=== PATIENT | female | born 1960 | race Caucasian/White ===

== ENCOUNTER → 2016-08-12 | Outpatient (CLI) | payer OTHER | LOC: EDSTATUS 14:18 → FIMAGING 14:18 | PROVIDERS: ATTEND Internal Medicine | DX: R91.8 Other nonspecific abnormal finding of lung field (principal); R05 Cough; R06.2 Wheezing ==

== ENCOUNTER → 2016-08-17 | Outpatient (CLI) | payer OTHER ==
[~2016-08-17] MED LIST: IOPAMIDOL (ISOVUE 370) 100 ML BTL IV ONE
== END ==
LOC: FIMAGING 15:47
PROVIDERS: ATTEND Nurse Practitioner Adult Health
DX: R91.8 Other nonspecific abnormal finding of lung field (principal); I25.10 Atherosclerotic heart disease of native coronary artery without angina pectoris; Q76.6 Other congenital malformations of ribs; E07.9 Disorder of thyroid, unspecified
CPT/HCPCS: Q9967

== ENCOUNTER 2016-08-19 11:32 | Day surgery (SDC) | payer OTHER ==
[2016-08-19] MEDS ORDERED: LIDOCAINE 1% 2 ML INJ ID PRN (11:51)
[2016-08-19] MEDS ORDERED: NS 1,000 ML IV ONE (11:51)
[2016-08-19 12:15] VITALS: TEMP 99.3
[2016-08-19] MEDS ORDERED: LIDOCAINE 2% JELLY 5 ML TUBE ONE (12:25)
[2016-08-19] MEDS ORDERED: LIDOCAINE 1% 300 MG/30 ML SDV ONE ×2 (12:25→12:45)
[2016-08-19] MEDS ORDERED: EPINEPHrine 1 MG/10 ML SYR IVP ONE (12:25)
[2016-08-19] MEDS ORDERED: ALBUTEROL 3 ML DEYVIAL ONE (12:26)
[2016-08-19] MEDS ORDERED: MIDAZOLAM 2 MG/2 ML VIAL ONE (12:45)
[2016-08-19] MEDS ORDERED: fentaNYL 100 MCG/2 ML INJ ONE (12:46)
[2016-08-19 14:34] VITALS: BP 105/66; PULSE 66; RESP 20; O2SAT 99
--- NOTE | 2016-08-19 18:47 | GPN ---
[f rep st] PROCEDURE NOTE DATE OF PROCEDURE: 08/19/2016 PROCEDURE: Fiberoptic bronchoscopy. INDICATION: Lung mass. ANESTHESIA: She received Versed 6 mg, fentanyl 150 mcg. She also received 4% lidocaine nebulized, 1% lidocaine topically. The procedure was performed in the endoscopy suite with continuous pulse ox EKG and blood pressure m onitoring. Please note, N95 masks were used by all participants throughout the procedure. DESCRIPTION OF PROCEDURE: The bronchoscope was entered orally. Vocal cords were visualized and opp osed easily. Trachea and maya were visualized and showed no endobronchial lesions and normal-appe aring mucosa. The bronchoscope was entered in the left lung. The left upper lobe, lingula, left lower lobe includ ing subsegments were subsequently visualized and showed no endobronchial lesions and normal-appearin g mucosa. The bronchoscope was entered in the right lung. The right upper lobe was visualized. It showed no endobronchial lesions and normal-appearing mucosa. In the bronchus intermedius, there was a glisten ing endobronchial tumor that appeared somewhat carcinoid-like and completely occluded the bronchus i ntermedius. I was unable to pass the bronchoscope past this lesion. One endobronchial biopsy was solange carney. This was sent for pathology. However, the patient bled profusely from the one biopsy requiri ng epinephrine. Once the bleeding ceased, bronchial washings were taken in this area. This was sent for cytology, C and S, fungal cultures and AFB. The bronchoscope was then removed. The patient tolerated the procedure well. COMPLICATIONS: The only complication was bleeding post biopsy that was resolved with epinephrine. Portable chest x-ray is called for. /[id number]/MODL
== END 2016-08-19 15:10 | disposition home or self-care (01) ==
LOC: FSGY 11:32
PROVIDERS: ATTEND Internal Medicine Pulmonary Disease
DX: C7A.090 Malignant carcinoid tumor of the bronchus and lung (principal); Z87.01 Personal history of pneumonia (recurrent)
CPT/HCPCS: J2250; J3010

== ENCOUNTER → 2016-09-06 | Outpatient (CLI) | payer OTHER ==
[~2016-09-06] MED LIST changes: -IOPAMIDOL (ISOVUE 370) 100 ML BTL IV ONE; +IOPAMIDOL (ISOVUE-300) 100 ML BTL ONE
== END ==
LOC: FIMAGING 09:46
PROVIDERS: ATTEND Internal Medicine Pulmonary Disease
DX: C34.91 Malignant neoplasm of unspecified part of right bronchus or lung (principal)
CPT/HCPCS: Q9967

== ENCOUNTER 2016-09-21 11:31 | Inpatient (IN) | payer OTHER ==
[2016-09-21] MEDS ORDERED: LIDOCAINE 1% 2 ML INJ ONE ×2 (11:51→12:15)
[2016-09-21] MEDS ORDERED: ceFAZolin 2 GM/DEXTROSE 100 ML IV ONE (11:56)
[2016-09-21] MEDS ORDERED: LR 1,000 ML IV ONE (12:17)
[2016-09-21] MEDS ORDERED: LIDOCAINE 1% 2 ML INJ ID PRN (12:17)
[2016-09-21] MEDS ORDERED: BUPIVACAINE 0.5% 30 ML SDV ONE (12:39)
--- NOTE | 2016-09-21 12:53 | PDANEPAE ---
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 ANE Past Medical History - Cardiovascular History Hx Hypertension: No Hx Arrhythmias: No Hx Chest Pain: No Hx Coronary Artery / Peripheral Vascular Disease: No Hx CHF / Valvular Disease: No Hx Palpitations: No Cardiovascular History Comment: BP RUNS LOW - Pulmonary History Hx COPD: No Hx Asthma/Reactive Airway Disease: No Hx Recent Upper Respiratory Infection: No Hx Oxygen in Use at Home: Yes O2 in Use at Home (L/minute): O2 2L CONT. Hx Sleep Apnea: No Sleep Apnea Screening Result - Last Documented: Negative Pulmonary History Comment: PNEUMONIA X1 LATE , recent PNA that led to diagnosis of obstructing tumor - Neurologic History Hx Cerebrovascular Accident: No Hx Seizures: Yes Hx Dementia: No Neurologic History Comment: EPILEPSY - SEIZURES NOT SINCE - Endocrine History Hx Diabetes: No - Renal History Hx Renal Disorders: No - Liver History Hx Hepatic Disorders: No - Neurological & Psychiatric Hx Hx Neurological and Psychiatric Disorders: No - Cancer History Hx Cancer: Yes Cancer History Comment: RLL LUNG - Congenital Disorder History Hx Congenital Disorders: No - GI History Hx Gastrointestinal Disorders: No - Other Health History Other Health History: ECZEMA OCCAS - Chronic Pain History Chronic Pain: No - Surgical History Prior Surgeries: TONSILLECTOMY. NODULES PAOLO KNEES REMOVED. OVARIAN CYST. WISDOM TEETH ANE Review of Systems - Exercise capacity METS (RN): 4 METS ANE Patient History - Allergies Allergies/Adverse Reactions: No Known Allergies Allergy (Unverified 09/21/11 11:44) - Home Medications Home medications: home medication list seen and reviewed Home Medications: Aspirin [Aspirin 325 mg (*)] 325 mg PO DAILY PRN 09/17/16 [Last Taken 09/17/16] Herbals/Supplements -Info Only 1 ea PO DAILY 09/17/16 [Last Taken 09/17/16] PHENOBARBITAL 97.2 mg PO DAILY 09/17/16 [Last Taken 09/21/16] Phenobarbital 32.4 mg PO DAILY PRN 09/17/16 [Last Taken 09/21/16] - NPO status NPO Since - Liquids (Date): 09/21/16 NPO Since - Liquids (Time): 09:00 NPO Since - Solids (Date): 09/20/16 NPO Since - Solids (Time): 22:00 - Smoking Hx Smoking Status: Never smoked - Family Anes Hx Family Anes Hx: neg - N/A Family Hx Anesthesia Complications: NEG ANE Labs/Vital Signs - Labs - CBC WBC: reviewed, no anemia - Vital Signs Blood Pressure: 120/84 Heart Rate: 80 Respiratory Rate: 18 O2 Sat (%): 96 Height: 156.85 cm Weight: 70.307 kg ANE Physical Exam - Airway Neck exam: FROM Mallampati Score: Class 3 Mouth exam: small mouth opening - Pulmonary Pulmonary: expiratory wheeze - Cardiovascular Cardiovascular: regular rate and rhythym - ASA Status ASA Status: IV ANE Anesthesia Plan Anesthesia Plan: general endotracheal anesthesia Lines/Monitors: arterial line Specialized Airway: double lumen tube, video laryngoscope
[2016-09-21] MEDS ORDERED: ALBUTEROL 3 ML DEYVIAL IH ONE (13:03)
--- NOTE | 2016-09-21 13:03 | PDHPUP ---
History & Physical Update H&P update statement: This history and physical update is based on an assessment of the patient which was completed after admission or registration (within 24 hours), but prior to the surgery/procedure. H&P update: H&P reviewed & patient examined H&P changes: PET negative
[2016-09-21] MEDS ORDERED: MIDAZOLAM 2 MG/2 ML VIAL IVP ONE (13:04)
[2016-09-21] MEDS ORDERED: MIDAZOLAM 2 MG/2 ML VIAL ONE (13:05)
[2016-09-21] MEDS ORDERED: ALBUTEROL 3 ML DEYVIAL ONE (13:05)
[2016-09-21] MEDS ORDERED: ROCURONIUM 100 MG/10 ML VIAL ONE (13:09)
[2016-09-21] MEDS ORDERED: DEXAMETHASONE 4 MG/ML VIAL ONE ×2 (13:09)
[2016-09-21] MEDS ORDERED: PROPOFOL/EMULSION 500 MG/50 ML BOTTLE IV ONE ×3 (13:09→17:02)
[2016-09-21] MEDS ORDERED: LIDOCAINE 2% 5 ML SDV ONE (13:09)
[2016-09-21 14:59] LABS: BASE EXCESS -0.2 mEq/L (-2.5-2.5); BICARBONATE 23 mEq/L (22-26); MEASURED OXYGEN SATURATION 96 % (92-95); PCO2 35 mmHg (34-38); PO2 80 mmHg (65-75); TCO2 24 mEq/L (23-27)
[2016-09-21] MEDS ORDERED: ONDANSETRON 4 MG/2 ML VIAL ONE (15:24)
[2016-09-21] MEDS ORDERED: ROCURONIUM 50 MG/5 ML VIAL ONE (15:57)
[2016-09-21 16:14] LABS: BASE EXCESS 0.1 mEq/L (-2.5-2.5); BICARBONATE 23 mEq/L (22-26); MEASURED OXYGEN SATURATION 98 % (92-95); PCO2 34 mmHg (34-38); PO2 98 mmHg (65-75); TCO2 24 mEq/L (23-27)
[2016-09-21] MEDS ORDERED: PHENYLEPHRINE HCL 100 MCG/ML SYR ONE (17:28)
[2016-09-21 17:35] LABS: BASE EXCESS -0.4 mEq/L (-2.5-2.5); BICARBONATE 23 mEq/L (22-26); MEASURED OXYGEN SATURATION 99 % (92-95); PCO2 35 mmHg (34-38); PO2 171 mmHg (65-75); TCO2 24 mEq/L (23-27)
[2016-09-21] MEDS ORDERED: ALBUMIN 25% 50 ML SOLN IV ONE (17:39)
[2016-09-21] MEDS ORDERED: ONDANSETRON DISINTEGRATING 4 MG TAB PO PRN (18:02)
[2016-09-21] MEDS ORDERED: ONDANSETRON 4 MG/2 ML VIAL IVP PRN (18:02)
[2016-09-21] MEDS ORDERED: diphenhydrAMINE 25 MG CAP PO PRN (18:02)
[2016-09-21] MEDS ORDERED: PHENOBARBITAL 32.4 MG PO PRN (18:04)
[2016-09-21] MEDS ORDERED: NARCOTIC DRIP BAG-TOTAL ALL TYPES EP PRN (18:06)
[2016-09-21] MEDS ORDERED: NALOXONE HCL 0.4 MG/ML INJ IVP PRN ×3 (18:06→20:19)
[2016-09-21] MEDS ORDERED: fentaNYL 2MCG/ML&BUP 0.0625% in 100ML NS EP SCH (18:06)
[2016-09-21] MEDS ORDERED: NEOSTIGMINE METHYLSULFATE 5 MG/5 ML SYR ONE (18:28)
[2016-09-21] MEDS ORDERED: GLYCOPYRROLATE 0.2 MG/1 ML VIAL ONE ×2 (18:29→18:36)
[2016-09-21] MEDS ORDERED: ALBUTEROL 3 ML DEYVIAL IH PRN (18:34)
[2016-09-21] MEDS ORDERED: PROMETHAZINE HCL 25 MG/ML INJ IVP PRN ×2 (18:34→20:19)
[2016-09-21] MEDS ORDERED: LR 500 ML IV PRN (18:34)
[2016-09-21] MEDS ORDERED: ACETAMINOPHEN 325 MG TAB PO PRN (19:03)
--- NOTE | 2016-09-21 19:06 | POSTOPPROG ---
Post Op Note Date of Operation: 09/21/16 Surgeon: Sailaja Rangel Vendor Relationship Manager: arpan Anesthesiologist: cee Anesthesia: GET(General Endotracheal) Pre-op Diagnosis: RLL carcinoid Post-op Diagnosis: same Indication: 55yo F with carcinoid tumor Procedure: R VATS convert thoracotomy with RML and RLL lobectomy Inf/Abcess present in the surg proc area at time of surgery?: No Depth: Organ Space EBL: Greater than 1000 Drains: Other (pleuravac)
[2016-09-21] MEDS ORDERED: PROPOFOL 200 MG/20 ML VIAL ONE (19:25)
--- NOTE | 2016-09-21 20:19 | POSTANESTH ---
Post Anesthetic Evaluation Cardiovascular Status: Normal, Stable Respiratory Status: Other, See Comment (Pt on ventilator, PS mode. Tv only 200 when taken off PS in OR. Decided to leave intubated overnight and reassess in the morning.) Level of Consciousness/Mental Status: Moderately Sleepy, Other, See Comment ( Sedated due to need for intubation.) Pain Control: Adequate, Prn Tx Ordered Nausea/Vomiting Control: Adequate, Prn Tx Ordered Complications Possibly Related to Anesthesia: None Noted
[2016-09-21 21:58] LABS: BICARBONATE 22 mEq/L (22-26); MEASURED OXYGEN SATURATION 100 % (92-95); PCO2 37 mmHg (34-38); PO2 284 mmHg (65-75); TCO2 23 mEq/L (23-27)
[2016-09-21 21:59] LABS: ASSIST CONTROL YES
[2016-09-21 22:00] LABS: END TIDAL CO2 43; O2 CONCENTRATIION 100 % (0-100); P/F RATIO 284 RATIO; TOTAL RATE 20
[2016-09-21 22:03] LABS: HEMATOCRIT 35.8 % (38.0-47.0); HEMOGLOBIN 12.1 g/dL (12.6-16.3)
[2016-09-21] MEDS ORDERED: fentaNYL 100 MCG/2 ML INJ IVP PRN (23:05)
[2016-09-21] MEDS: FAMOTIDINE 20 MG/NACL 50 ML IV SCH (23:15)
[2016-09-21] MEDS: CHLORHEXIDINE GLUCONATE 15 ML UDL PO SCH (23:15)
[2016-09-21] MEDS: PATCH REMOVAL 1 EA PATCH TD SCH (23:16)
[2016-09-22] MEDS ORDERED: PHENOBARBITAL 32.4 MG PO PRN (00:35)
[2016-09-22] MEDS ORDERED: PROPOFOL/EMULSION 1,000 MG/100 ML BOTTLE IV ONE (04:21)
[2016-09-22 04:37] LABS: % IMMATURE GRANULYOCYTES 0.3 % (0.0-1.1); ABSOLUTE IMMATURE GRANULOCYTES 0.04 10^3/uL (0.00-0.10); ADD DIFF? NO; ADD MORPH? NO; ADD SCAN? NO; ATYPICAL LYMPHOCYTE FLAG 0 (0-99); FRAGMENT RBC FLAG 0 (0-99); HEMATOCRIT 34.7 % (38.0-47.0); HEMOGLOBIN 11.8 g/dL (12.6-16.3); LEFT SHIFT FLG 40 (0-99); LIPEMIA HEMOLYSIS FLAG 90 (0-99); MEAN CELL VOLUME 91.1 fL (81.5-99.8); MEAN PLATELET VOLUME 9.3 fL (8.7-11.7); PLATELET CLUMPS FLAG 0 (0-99); PLATELET COUNT 179 10^3/uL (150-400); RED BLOOD CELL COUNT 3.81 10^6/uL (4.18-5.33); RED CELL DISTRIBUTION WIDTH 14.3 % (11.5-15.2)
[2016-09-22 04:50] LABS: ANION GAP 7 mEq/L (8-16); CALCIUM 8.5 mg/dL (8.5-10.4); CARBON DIOXIDE 24 mEq/l (22-31); CHLORIDE 104 mEq/L (97-110); CREATININE 0.7 mg/dL (0.6-1.0); GLOMERULAR FILTRATION RATE > 60; GLUCOSE 137 mg/dL (70-100); POTASSIUM 4.2 mEq/L (3.5-5.2); SODIUM 135 mEq/L (134-144)
[2016-09-22 05:10] LABS: BASE EXCESS -0.2 mEq/L (-2.5-2.5); BICARBONATE 23 mEq/L (22-26); MEASURED OXYGEN SATURATION 98 % (92-95); PCO2 38 mmHg (34-38); PO2 109 mmHg (65-75); TCO2 25 mEq/L (23-27)
[2016-09-22 05:13] LABS: ASSIST CONTROL YES; O2 CONCENTRATIION 40 % (0-100); P/F RATIO 273 RATIO; TOTAL RATE 14
[2016-09-22] MEDS ORDERED: PROPOFOL/EMULSION 100 ML IV SCH (06:31)
[2016-09-22 08:43] LABS: BASE EXCESS 0.2 mEq/L (-2.5-2.5); BICARBONATE 24 mEq/L (22-26); MEASURED OXYGEN SATURATION 98 % (92-95); PCO2 37 mmHg (34-38); PO2 106 mmHg (65-75); TCO2 25 mEq/L (23-27)
[2016-09-22 08:44] LABS: CPAP YES; END TIDAL CO2 41; O2 CONCENTRATIION 40 % (0-100); P/F RATIO 265 RATIO
[2016-09-22 08:45] LABS: PATIENT RATE 25; PRESSURE SUPPORT 10
[2016-09-22] MEDS ORDERED: DC NARCS MISC SCH (09:00)
[2016-09-22] MEDS: FAMOTIDINE 20 MG/NACL 50 ML IV SCH ×2 (09:00→19:49)
[2016-09-22] MEDS ORDERED: REGARDING ANTICOAG MISC SCH (09:00)
[2016-09-22] MEDS: PHENOBARBITAL 97.2 MG PO SCH (09:05)
[2016-09-22] MEDS ORDERED: LIDOCAINE 2% 5 ML SDV ONE (09:13)
[2016-09-22] MEDS ORDERED: NARCOTIC DRIP BAG-TOTAL ALL TYPES EP PRN (10:14)
[2016-09-22] MEDS ORDERED: NALOXONE HCL 0.4 MG/ML INJ IVP PRN (10:14)
[2016-09-22] MEDS: fentaNYL 2MCG/ML/BUP 0.1% RTU 100 ML EP SCH (10:53)
[2016-09-22] MEDS: NS 1,000 ML IV SCH (11:07)
[2016-09-22] MEDS: DIAZEPAM 10 MG TAB PO PRN ×2 (11:07→19:49)
--- NOTE | 2016-09-22 11:16 | SOAPPROG ---
SOAP Progress Note Assessment/Plan: Assessment: 38 year old female s/p R thoractomy on POD #1. Intubated overnight secondary to low spontaneous Tv at end of surgery. Pt is 10/10 pain at this time. Pt does have a sensory block to cold on R chest, just not a very dense block. Blocked area T4 to T12 at this time. Pt responded well to 2% lidocaine bolus in epidural (pain down from 10/10 to 4/ 10). Pt complains of persistent in scapula and collarbone. Reports feeling that she could not relax the shoulder this AM. Plan: 1. Change epidural infusion to 0.1 % bupivacaine with Fentanyl 2 mcg/cc. 2. Start Valium for muscle spasm in shoulder girdle. 3. If Valium ineffective, will try Percocet. 09/22/16 11:13 Objective: Vital Signs Temp Pulse Resp BP Pulse Ox 37.6 C 102 H 24 H 107/61 98 09/22/16 06:00 09/22/16 08:00 09/22/16 08:00 09/22/16 08:00 09/22/16 08:00 Laboratory Results 09/22/16 04:20 09/22/16 04:20 09/21/16 09/22/16 09/23/16 05:59 05:59 05:59 Intake Total 768 Output Total 466 Balance 302 ICD10 Worksheet Patient Problems: Problems Problem Status Onset Pain Acute - ICD10 Problem Qualifiers (1) Pain
[2016-09-22] MEDS ORDERED: ROCURONIUM 100 MG/10 ML VIAL ONE (14:46)
[2016-09-22] MEDS: CHLORHEXIDINE GLUCONATE 15 ML UDL PO SCH ×2 (16:02→20:35)
--- NOTE | 2016-09-22 16:21 | SOAPPROG ---
SOAP Progress Note Assessment/Plan: Assessment: 55yo F POD#1 s/p mini-thoracotomy RML and RLL lobectomy for carcinoid lung tumor Acute blood loss anemia s/p 1u PRBCs in OR. H/H stable today. Continue to follow Chest tube to water seal - repeat CXR in am Regular diet Epidural in place - anesthesia managing for pain control. Tylenol OK Up in chair, ambulate with PT/OT Seen with Dr. Rangel Dispo: continue inpatient, hopeful to remove chest tube tomorrow if CXR ok in am S: extubated today. issues with pain control this morning, Dr. Alonso adjusted meds and now feeling better. Hasn't gotten out of bed yet O: laying in bed, comfortable, NAD, at bedside Decreased BS R base. Clear elsewhere. No increased WOB RRR Chest dressings in place Chest tube with min serosanguinous output. No air leak Objective: Vital Signs Temp Pulse Resp BP Pulse Ox 37.6 C 92 21 H 129/63 H 99 09/22/16 06:00 09/22/16 14:00 09/22/16 15:59 09/22/16 15:59 09/22/16 15:59 Laboratory Results 09/22/16 04:20 09/22/16 04:20 09/21/16 09/22/16 09/23/16 05:59 05:59 05:59 Intake Total 768 Output Total 466 Balance 302 ICD10 Worksheet Patient Problems: Problems Problem Status Onset Pain Acute
[2016-09-22] MEDS: LIDOCAINE 5% 1 EA PATCH TD SCH (17:28)
[2016-09-22] MEDS: PATCH REMOVAL 1 EA PATCH TD SCH (20:35)
[2016-09-23] MEDS: DIAZEPAM 10 MG TAB PO PRN ×4 (01:39→21:30)
[2016-09-23] MEDS: fentaNYL 2MCG/ML/BUP 0.1% RTU 100 ML EP SCH (01:41)
[2016-09-23] MEDS: LIDOCAINE 5% 1 EA PATCH TD SCH ×2 (02:14→12:38)
[2016-09-23] MEDS: PATCH REMOVAL 1 EA PATCH TD SCH (05:30)
[2016-09-23] MEDS ORDERED: LIDOCAINE 5% 1 EA PATCH TD SCH (09:00)
[2016-09-23] MEDS: FAMOTIDINE 20 MG/NACL 50 ML IV SCH (09:36)
[2016-09-23] MEDS: DC NARCS MISC SCH (09:36)
[2016-09-23] MEDS: REGARDING ANTICOAG MISC SCH (09:37)
[2016-09-23] MEDS: PHENOBARBITAL 97.2 MG PO SCH (09:43)
--- NOTE | 2016-09-23 13:00 | PDINTPN ---
Hosiery Knitter Progress Note Assessment/Plan: Assessment/plan: 55 F with recent diagnosis of pulmonary carcinoid, s/p RML/RLL lobectomy without complication. She presented with non productive cough, but CT showed obstructing lesion at bronchus intermedius. Bronch showed carcinoid, while PET/ CT did not show additional lesions. Preop FEV1= 66% predicted with normal DLCO and volumes. Underwent VATS but converted to thoracotomy with >1000 EBL. Remained on vent overnight, but extubated easily 09/22/16. * Pulmonary carcinoids/p RML/RLL lobectomy- currently stable with no visible air leak by my exam and CT output total 280. CXR without PTX. Pain controlled. Continue pulmonary toilet, but probable OK for floor. * Hypoxia- not clear what baseline will be but continue to titrate as tolerated. On 3 lpm sat was 99% Subjective: feels better today; pain controlled. Denies SOB, cough. Objective: Vital Signs Temp Pulse Resp BP Pulse Ox 36.6 C 95 16 114/55 L 99 09/23/16 08:00 09/23/16 08:00 09/23/16 08:00 09/23/16 08:00 09/23/16 08:00 Laboratory Results 09/22/16 04:20 09/22/16 04:20 09/22/16 09/23/16 09/24/16 05:59 05:59 05:59 Intake Total 768 1757 Output Total 466 1730 Balance 302 27 Physical Exam - Physical Exam General Appearance: WD/WN, alert, no apparent distress EENT: PERRL/EOMI Neck: supple Respiratory: rhonchi (few), No respiratory distress Cardiac/Chest: regular rate, rhythm, No edema Abdomen: non-tender, soft, No distended Skin: normal color, warm/dry Lymphatic: no adenopathy Extremities: No pedal edema Neuro/Psych: alert, normal mood/affect, oriented x 3 ICD10 Worksheet Patient Problems: Problems Problem Status Onset Pain Acute
--- NOTE | 2016-09-23 20:16 | SOAPPROG ---
SOAP Progress Note Assessment/Plan: Assessment: 38 year old female s/p R thoracotomy with RML and RLL lobectomies now on POD # 2. Pt moved to floor room today. Pain well-controlled with TEA. Pain level a 4-5 /10 by report. Pt able to cough, deep breath, and move with minimal change in pain level. Appears comfortable. Plan: 1. Continue epidural infusion at current settings. When chest tube removed, consider transitioning to oral narcotics + Celebrex/Neurontin as tolerated. 2. Continue Valium for shoulder pain/muscle spasm. Discussed spacing out dosing with patient, particularly during the day, so that she can walk and be more active. 09/22/16 11:13 09/23/16 20:13 Objective: Vital Signs Temp Pulse Resp BP Pulse Ox 37.0 C 105 H 16 114/83 H 96 09/23/16 19:52 09/23/16 19:52 09/23/16 19:52 09/23/16 19:52 09/23/16 19:52 Laboratory Results 09/22/16 04:20 09/22/16 04:20 09/22/16 09/23/16 09/24/16 05:59 05:59 05:59 Intake Total 768 1757 550 Output Total 466 1730 100 Balance 302 27 450 Physical Exam - Physical Exam General Appearance: alert, no apparent distress ICD10 Worksheet Patient Problems: Problems Problem Status Onset Pain Acute - ICD10 Problem Qualifiers (1) Pain
[2016-09-23] MEDS ORDERED: PATCH REMOVAL 1 EA PATCH TD SCH (21:00)
--- NOTE | 2016-09-23 21:00 | SOAPPROG ---
SOAP Progress Note Assessment/Plan: Assessment: POD # 2 s/p right middle and lower lobectomy for carcinoid CXR without pneumothorax on waterseal Chronic respiratory failure on oxygen at home Seizure disorder - continue po meds Pain is better controlled today Regular diet IS Ambulate at least 3x per day S: Woke up at 2 am in pain. Sitting in chair, at bedside No air leak Surprisingly clear but needs improved effort Regular rate Incisions cdi Plan: 09/23/16 20:57 Objective: Vital Signs Temp Pulse Resp BP Pulse Ox 37.0 C 105 H 16 114/83 H 96 09/23/16 19:52 09/23/16 19:52 09/23/16 19:52 09/23/16 19:52 09/23/16 19:52 Laboratory Results 09/22/16 04:20 09/22/16 04:20 09/22/16 09/23/16 09/24/16 05:59 05:59 05:59 Intake Total 768 1757 550 Output Total 466 1730 100 Balance 302 27 450 ICD10 Worksheet Patient Problems: Problems Problem Status Onset Pain Acute
[2016-09-23] MEDS: NS 1,000 ML IV SCH (23:50)
[2016-09-24] MEDS: fentaNYL 2MCG/ML/BUP 0.1% RTU 100 ML EP SCH ×3 (00:17→20:36)
[2016-09-24] MEDS: DIAZEPAM 10 MG TAB PO PRN ×3 (04:16→21:37)
[2016-09-24 05:05] LABS: % IMMATURE GRANULYOCYTES 0.7 % (0.0-1.1); ABSOLUTE IMMATURE GRANULOCYTES 0.07 10^3/uL (0.00-0.10); ADD DIFF? NO; ADD MORPH? NO; ADD SCAN? NO; ATYPICAL LYMPHOCYTE FLAG 0 (0-99); FRAGMENT RBC FLAG 0 (0-99); HEMOGLOBIN 8.9 g/dL (12.6-16.3); LEFT SHIFT FLG 20 (0-99); LIPEMIA HEMOLYSIS FLAG 80 (0-99); MEAN CELL HEMOGLOBIN 31.2 pg (27.9-34.1); MEAN CELL VOLUME 94.7 fL (81.5-99.8); MEAN PLATELET VOLUME 9.6 fL (8.7-11.7); PLATELET CLUMPS FLAG 0 (0-99); PLATELET COUNT 127 10^3/uL (150-400); RED BLOOD CELL COUNT 2.85 10^6/uL (4.18-5.33); RED CELL DISTRIBUTION WIDTH 13.3 % (11.5-15.2)
--- NOTE | 2016-09-24 06:30 | SOAPPROG ---
SOAP Progress Note Assessment/Plan: Assessment: 38 year old female s/p R thoracotomy with RML and RLL lobectomies now on POD # 3. Pt in bed awake. Reports last night was a better night. Better sleep, less shoulder pain. Pt able to cough and roll onto side with minimal increased discomfort. Plan: 1. If chest tube is removed, and pt ambulates outside of room today, will hold epidural infusion tomorrow morning at 6 AM and trial oral pain regimen. 09/22/16 11:13 09/23/16 20:13 09/24/16 06:28 Objective: Vital Signs Temp Pulse Resp BP Pulse Ox 37.0 C 107 H 16 99/68 L 93 09/24/16 06:00 09/24/16 06:00 09/24/16 06:00 09/24/16 06:00 09/24/16 06:00 Laboratory Results 09/24/16 04:40 09/22/16 04:20 09/23/16 09/24/16 09/25/16 05:59 05:59 05:59 Intake Total 1757 900 100 Output Total 1730 350 250 Balance 27 550 -150 Physical Exam - Physical Exam General Appearance: alert, no apparent distress Back: Other (Epidural insertion site: catheter in place. No erythema/exudate/ induration/point tenderness.) ICD10 Worksheet Patient Problems: Problems Problem Status Onset Pain Acute - ICD10 Problem Qualifiers (1) Pain
[2016-09-24] MEDS: PHENOBARBITAL 97.2 MG PO SCH (08:39)
[2016-09-24] MEDS ORDERED: CANN-EASE 2 GM TUBE TP PRN (12:22)
[2016-09-24] MEDS: DC NARCS MISC SCH (12:42)
[2016-09-24] MEDS: REGARDING ANTICOAG MISC SCH (12:43)
--- NOTE | 2016-09-24 13:47 | SOAPPROG ---
<Lesli Palomino - Last Filed: 09/24/16 13:41> SOAP Progress Note Assessment/Plan: Assessment: 55yo F POD#3 s/p mini-thoracotomy RML and RLL lobectomy for carcinoid lung tumor H/H drifting. Continue to follow Chest tube to water seal . Output increased today Regular diet Epidural in place - anesthesia managing for pain control Up in chair, ambulate with PT/OT Dispo: continue inpatient S: O: sitting up in chair, comfortable, NAD] Decreased BS R base. Clear elsewhere. No increased WOB RRR Chest dressings in place Chest tube with serosanguinous output. No air leak Objective: Vital Signs Temp Pulse Resp BP Pulse Ox 36.8 C 102 H 16 108/65 98 09/24/16 12:00 09/24/16 12:00 09/24/16 12:00 09/24/16 12:00 09/24/16 12:00 Laboratory Results 09/24/16 04:40 09/22/16 04:20 09/23/16 09/24/16 09/25/16 05:59 05:59 05:59 Intake Total 1757 900 100 Output Total 1730 350 250 Balance 27 550 -150 ICD10 Worksheet Patient Problems: Problems Problem Status Onset Pain Acute <Sailaja Rangel - Last Filed: 09/24/16 20:51> SOAP Progress Note Assessment/Plan: Assessment: Path T1bNO typical carcinoid No air leak' Incision cdi Walked to 2nd nursing station Remove chest tube when less than 150cc out in 24 hour Home on O2 due to chronic respiratory failure Epidural likely out on Tuesday Plan: 09/24/16 20:49 Objective: Vital Signs Temp Pulse Resp BP Pulse Ox 37.4 C 94 16 122/78 H 98 09/24/16 20:00 09/24/16 20:00 09/24/16 20:00 09/24/16 20:00 09/24/16 20:00 Laboratory Results 09/24/16 04:40 09/22/16 04:20 09/23/16 09/24/16 09/25/16 05:59 05:59 05:59 Intake Total 4069 407 4876 Output Total 1730 350 455 Balance 27 550 1045
[2016-09-24] MEDS: LIDOCAINE 5% 1 EA PATCH TD SCH ×2 (18:46→21:36)
[2016-09-25] MEDS: NS 1,000 ML IV SCH (01:37)
[2016-09-25 05:08] LABS: % IMMATURE GRANULYOCYTES 0.5 % (0.0-1.1); ABSOLUTE IMMATURE GRANULOCYTES 0.03 10^3/uL (0.00-0.10); ADD DIFF? NO; ADD MORPH? NO; ADD SCAN? NO; ATYPICAL LYMPHOCYTE FLAG 0 (0-99); FRAGMENT RBC FLAG 0 (0-99); HEMATOCRIT 25.1 % (38.0-47.0); HEMOGLOBIN 8.3 g/dL (12.6-16.3); LEFT SHIFT FLG 30 (0-99); LIPEMIA HEMOLYSIS FLAG 80 (0-99); MEAN CELL HEMOGLOBIN 31.3 pg (27.9-34.1); MEAN CELL HEMOGLOBIN CONCENTR. 33.1 g/dL (32.4-36.7); MEAN CELL VOLUME 94.7 fL (81.5-99.8); MEAN PLATELET VOLUME 9.5 fL (8.7-11.7); PLATELET CLUMPS FLAG 0 (0-99); PLATELET COUNT 139 10^3/uL (150-400); RED BLOOD CELL COUNT 2.65 10^6/uL (4.18-5.33); RED CELL DISTRIBUTION WIDTH 13.2 % (11.5-15.2)
[2016-09-25] MEDS: fentaNYL 2MCG/ML/BUP 0.1% RTU 100 ML EP SCH ×2 (06:31→18:45)
[2016-09-25] MEDS ORDERED: BISACODYL 10 MG SUPP PR PRN (08:23)
[2016-09-25] MEDS ORDERED: MAGNESIUM HYDROXIDE 30 ML UDCUP PO PRN (08:23)
[2016-09-25] MEDS ORDERED: POLYETHYLENE GLYCOL 3350 17 GM PKT PO PRN (08:23)
[2016-09-25] MEDS ORDERED: LACTULOSE 20 GM/30 ML UDCUP PO PRN (08:23)
--- NOTE | 2016-09-25 08:49 | SOAPPROG ---
MABLE Progress Note Assessment/Plan: Assessment/Plan: - 55-year-old female status post thoracotomy for right middle and lower lobectomy for carcinoid -Pain appears well controlled with the epidural, will plan to remove the epidural tomorrow. - chest tube output greater than 250 cc over the last 24 hours, no air leak, to water seal. Given its output over the last 24 hours I will leave the tube until tomorrow, will likely remove it then. - Regular diet, bowel regimen added. - patient is to get out of bed and ambulate, anticipate she will be in house until Tuesday or Tuesday. 09/25/16 08:48 Subjective: Doing well, not much of an appetite Objective: Vital Signs Temp Pulse Resp BP Pulse Ox 36.9 C 91 16 112/74 99 09/25/16 07:40 09/25/16 07:40 09/25/16 07:40 09/25/16 07:40 09/25/16 07:40 Laboratory Results 09/25/16 04:24 09/22/16 04:20 09/24/16 09/25/16 09/26/16 05:59 05:59 05:59 Intake Total 900 2577 Output Total 350 508 250 Balance 550 2069 -250 ICD10 Worksheet Patient Problems: Problems Problem Status Onset Pain Acute
[2016-09-25] MEDS: SENNOSIDES/DOCUSATE SODIUM TAB PO SCH ×2 (09:30→21:14)
[2016-09-25] MEDS: PHENOBARBITAL 97.2 MG PO SCH (09:30)
[2016-09-25] MEDS: DIAZEPAM 10 MG TAB PO PRN ×2 (09:30→21:13)
[2016-09-25] MEDS: PATCH REMOVAL 1 EA PATCH TD SCH (09:32)
[2016-09-25] MEDS: REGARDING ANTICOAG MISC SCH (09:33)
[2016-09-25] MEDS: DC NARCS MISC SCH (09:33)
--- NOTE | 2016-09-25 12:08 | GOP ---
[f rep st] OPERATIVE REPORT DATE OF OPERATION: 09/21/2016 SURGEON: Sailaja Rangel MD PENSION ADMINISTRATOR: Dr. Bird, who was requested by my presence for timely completion of the case and techni martin expertise. PREOPERATIVE DIAGNOSIS: Right bronchus intermedius carcinoid tumor. POSTOPERATIVE DIAGNOSIS: Right bronchus intermedius carcinoid tumor. PROCEDURE PERFORMED: thoracotomy, right middle and lower lobectomy. FINDINGS: SPECIMENS: Right middle and lower lobes. ESTIMATED BLOOD LOSS: 1 L. INDICATIONS: The patient is a 55-year-old woman, with a carcinoid tumor in her right bronchus inter medius. DESCRIPTION OF PROCEDURE: The patient was brought into the operating room, placed supine on the tab le, and general anesthesia was administered. She was placed in the decubitus position with the righ t side up, and isolated. The chest was prepped and draped in the usual sterile fashion. I infiltrated all sites with 0.5% Marcaine prior to making the incision. I made an incision in the mid axillary line at approximately 6th rib space. I then inserted an anterior trocar at the the 4t h rib space, as well as a posterior trocar along the 8th rib space. I explored her cavity. There w as a well-developed fissure between the right upper lobe and the right middle lobe. Began my dissec tion in this area. The right upper lobe was retracted anteriorly. I found the pulmonary artery, wh ich was readily identified. I began to skeletonize it and its branches. I divided it as it bifurca aline, with an Endo-JOY white load staple. I continued to retract the lung posteriorly and divide the mediastinal , and continued my dissection. I was able to identify the bronchus. Next, I retracted the lung to identify the pulmonary vein. The inferior pulmonary vein appeared quite smal l and there was a larger vein next to this. As I was dissecting this, I made a small breech and we made a mini thoracotomy to control the bleeding, and we dissected down through the skin, subcutaneou s tissues, divided the muscles, and inserted a retractor, and were able to identify the i n this area. The vessel actually was the superior pulmonary vein, and I was able to come around the inferior pulmonary vein and suture ligate this and divide it. I continued to divide the remaining attachments so that the only structure remaining was the bronchus intermedius. I clamped this and h ad Anesthesia re-insufflate the lung. The right upper lung expanded appropriately and desufflated. I then divided the bronchus with the JOY blue load stapler. The lung was passed off the table and sent to Pathology. I then pushed air space from the cavity, and had Anesthesia re-insufflate. Up a samir, there was 1 small air leak, which was repaired with a suture. No additional air leaks noted. I placed a 32-A[place]ijani chest tube directed apically. It was sutured in place with 0 Vicryl and ____ approximated and placed 0 Vicryl sutures to reapproximate the . I then closed each of the muscle layers with 2-0 Vicryl. The subcutaneous tissues were closed with 3-0 Vicryl, followed by 4-0 Monocryl, and Dermabond applied. The chest tube was connected to a Pleur-Evac and to suction . She was placed back in the supine position, awakened in the operating room, extubated, and transf erred to PACU in stable condition. /[id number]/MODL
--- NOTE | 2016-09-25 19:45 | SOAPPROG ---
SOAP Progress Note Assessment/Plan: Assessment:epidural working to good effect Plan:continue current infusion scheme 09/25/16 19:43 Subjective: pain well controlled, catheter site intact, no induration or erythema Objective: Vital Signs Temp Pulse Resp BP Pulse Ox 37.1 C 94 16 105/66 100 09/25/16 15:55 09/25/16 15:55 09/25/16 15:55 09/25/16 15:55 09/25/16 15:55 Laboratory Results 09/25/16 04:24 09/22/16 04:20 09/24/16 09/25/16 09/26/16 05:59 05:59 05:59 Intake Total 900 2577 Output Total 350 508 330 Balance 550 2069 -330 - Pending Discharge Pending Discharge Within 24 Hours: No ICD10 Worksheet Patient Problems: Problems Problem Status Onset Pain Acute
[2016-09-25] MEDS: LIDOCAINE 5% 1 EA PATCH TD SCH (21:14)
[2016-09-26] MEDS: NS 1,000 ML IV SCH (02:40)
[2016-09-26] MEDS: fentaNYL 2MCG/ML/BUP 0.1% RTU 100 ML EP SCH (06:02)
[2016-09-26] MEDS: DIAZEPAM 10 MG TAB PO PRN ×2 (08:17→21:17)
[2016-09-26] MEDS: SENNOSIDES/DOCUSATE SODIUM TAB PO SCH ×2 (08:18→21:19)
[2016-09-26] MEDS: DC NARCS MISC SCH (08:18)
[2016-09-26] MEDS: REGARDING ANTICOAG MISC SCH (08:18)
[2016-09-26] MEDS: PHENOBARBITAL 97.2 MG PO SCH (08:18)
[2016-09-26] MEDS: PATCH REMOVAL 1 EA PATCH TD SCH (08:19)
--- NOTE | 2016-09-26 09:24 | SOAPPROG ---
[facility] Progress Note Assessment/Plan: Assessment/Plan: - 55-year-old female status post thoracotomy for right middle and lower lobectomy for carcinoid -pain controlled, epidural out ideally today. Will discuss with the on-call anesthesia -chest tube with just over 100 cc out over the last 24 hours, was discontinued at the bedside without complication. Site appropriately dressed, would wait 24 hours before showering -tolerating a diet, working on bowel function. -out of bed ambulating, anticipate will go home tomorrow with home oxygen. 09/25/16 08:48 09/26/16 09:23 Subjective: Feeling well, tolerating a diet. Anxious to get the tube out Objective: Vital Signs Temp Pulse Resp BP Pulse Ox 36.8 C 92 16 122/77 H 98 09/26/16 07:46 09/26/16 07:46 09/26/16 07:46 09/26/16 07:46 09/26/16 07:46 Laboratory Results 09/25/16 04:24 09/22/16 04:20 09/25/16 09/26/16 09/27/16 05:59 05:59 05:59 Intake Total 9698 838 Output Total 501 355 Balance 9843 445 ICD10 Worksheet Patient Problems: Problems Problem Status Onset Pain Acute
--- NOTE | 2016-09-26 11:52 | SOAPPROG ---
SOAP Progress Note Assessment/Plan: Assessment: Dr. Albarran says patient ready to stop epidural and transition to PO analgesia. She confirms this. Plan: D/C epidural infusion, remove catheter. 09/26/16 11:49 Subjective: Analgesia has been good. Objective: Epidural site dry, noninflamed. Catheter removed, black tip intact. Dr. Albarran and RN notified. Vital Signs Temp Pulse Resp BP Pulse Ox 36.8 C 93 19 114/71 98 09/26/16 07:46 09/26/16 10:00 09/26/16 10:00 09/26/16 10:00 09/26/16 10:00 Laboratory Results 09/25/16 04:24 09/22/16 04:20 09/25/16 09/26/16 09/27/16 05:59 05:59 05:59 Intake Total 0910 838 Output Total 500 355 Balance 5507 493 - Time Spent With Patient Time Spent With Patient: 10 min ICD10 Worksheet Patient Problems: Problems Problem Status Onset Pain Acute
[2016-09-26] MEDS: OXYCODONE/APAP 5/325 TAB PO PRN ×3 (12:48→21:18)
[2016-09-26] MEDS: LIDOCAINE 5% 1 EA PATCH TD SCH (21:17)
[2016-09-27] MEDS: OXYCODONE/APAP 5/325 TAB PO PRN ×4 (02:08→21:05)
[2016-09-27] MEDS: SENNOSIDES/DOCUSATE SODIUM TAB PO SCH ×2 (08:16→21:04)
[2016-09-27] MEDS: PHENOBARBITAL 97.2 MG PO SCH (08:17)
[2016-09-27] MEDS: PATCH REMOVAL 1 EA PATCH TD SCH (08:41)
--- NOTE | 2016-09-27 11:05 | SOAPPROG ---
MABLE Progress Note Assessment/Plan: Assessment/Plan: - 55-year-old female status post thoracotomy for right middle and lower lobectomy for carcinoid - Epidural is out, pain is controlled - Very poor pulmonary effort, had her perform IS for me this AM and not even getting 500cc. She didnt seem to understand the concept but after counseling seems to have better understanding of need for pulm toilet - From all other aspect she is doing well and meeting milestones for dc, will check back in later this afternoon and if doing well will plan to dc home. - Will need home O2 09/25/16 08:48 09/26/16 09:23 09/27/16 11:03 Subjective: Pain controlled with epidural removed, very poor pulmonary effort <500cc on IS Objective: Vital Signs Temp Pulse Resp BP Pulse Ox 36.7 C 87 18 117/73 98 09/27/16 09:02 09/27/16 09:02 09/27/16 09:02 09/27/16 09:02 09/27/16 09:02 Laboratory Results 09/25/16 04:24 09/22/16 04:20 09/26/16 09/27/16 09/28/16 05:59 05:59 05:59 Intake Total 838 1450 Output Total 355 Balance 483 1450 ICD10 Worksheet Patient Problems: Problems Problem Status Onset Pain Acute
[2016-09-27] MEDS: DIAZEPAM 10 MG TAB PO PRN ×2 (12:38→21:04)
[2016-09-27] MEDS: LIDOCAINE 5% 1 EA PATCH TD SCH (21:11)
[2016-09-28] MEDS: OXYCODONE/APAP 5/325 TAB PO PRN ×3 (02:29→13:35)
[2016-09-28] MEDS: DIAZEPAM 10 MG TAB PO PRN ×2 (05:50→13:35)
[2016-09-28] MEDS ORDERED: PHENOBARBITAL 97.2 MG PO SCH (08:00)
[2016-09-28] MEDS: SENNOSIDES/DOCUSATE SODIUM TAB PO SCH (08:15)
[2016-09-28] MEDS: PATCH REMOVAL 1 EA PATCH TD SCH (08:18)
[2016-09-28 08:52] VITALS: BP 118/72; RESP 18; TEMP 98.1
--- NOTE | 2016-09-28 11:44 | PDIAF ---
- Diagnosis Diagnosis: s/p lobectomy for cancer Code Status: Full Code - Medication Management Discharge Medications: Medications to Continue on Transfer Aspirin [Aspirin 325 mg (*)] 325 mg PO DAILY PRN 09/17/16 [Last Taken 09/17/16] Herbals/Supplements -Info Only 1 ea PO DAILY 09/17/16 [Last Taken 09/17/16] PHENOBARBITAL 97.2 mg PO DAILY 09/17/16 [Last Taken 09/21/16] Phenobarbital 32.4 mg PO DAILY PRN 09/17/16 [Last Taken 09/21/16] Diazepam [Valium 10 MG (*)] 5 mg PO Q6HRS PRN #30 tab 09/28/16 [Last Taken Unknown] oxyCODONE/APAP 5/325 [Percocet 5/325 (*)] 1 - 2 tab PO Q4HRS PRN #40 tab [Last Taken Unknown] Discharge Medications: Refer to the Discharge Home Medication list for PRN reason. - Orders Services needed: Home Care, Registered Nurse, Physical Therapy, Occupational Therapy Home Care Face to Face: I certify that this patient was under my care and that I had the required [id number] encounter meeting the encounter requirements on the discharge day. My findings support the fact that the patient is homebound as defined in CMS Chapter 7 Medicare Benefits Manual 30.1.1, The condition of the patient is such that there exists a normal inability to leave home and consequently, leaving home would require a considerable and taxing effort. Oxygen: 1 Liter at all times Diet Recommendation: no restrictions on diet Diet Texture: Regular Texture Diet - Follow Up Care Current Providers and Referrals: Yolanda Kee MD [Primary Care Provider] - Sailaja Rangel MD [Medical Doctor] -
--- NOTE | 2016-09-28 11:45 | PDHOMEO2F ---
Home Oxygen Face to Face Home Orders: I certify that a physician or a nurse practitioner or physician's congressional assistant has had a [id number] encounter with this patient on the date of this order due to the diagnosis listed, which relates to the primary reason the patient requires home oxygen. Alternative treatments have been tried, or considered, and deemed ineffective. It is anticipated that supplemental oxygen will result in improvement with treatment. Home oxygen qualifying diagnosis: respiratory insufficiency status post lung lobectomy for lung cancer SpO2 on room air (%): <90 Frequency of home oxygen needed: continuous Home oxygen liters per minute: 1 Home oxygen delivery device: nasal cannula Concentrator: Yes E-tanks for mobility and back up: Yes If ordering portable O2, is the patient mobile in the home?: Yes I certify that, based on these findings, the home oxygen is medically necessary for this patient for the following length of time. Length of time home oxygen needed: 1 week
--- NOTE | 2016-09-28 12:40 | PDDCSUM ---
Discharge Summary Discharge Summary: DISCHARGE SUMMARY Date of Admission September 21 Date of Discharge September 28 DISCHARGE DIAGNOSES -carcinoid tumor of right lung -postop respiratory insufficiency HOSPITAL COURSE The patient was admitted and taken to the operating room where they underwent thoracoscopic converted to open thoracotomy right middle and lower lobectomy. She had an epidural placed preoperatively for pain control this was removed 2 days prior to discharge. They were subsequently taken to the PACU and then the general medical floor. The hospital course was uneventful, their diet was advanced to a regular diet which was well tolerated and their pain was well controlled. They were discharged home in stable condition on home oxygen, 1 L at all times. DISCHARGE MEDICATIONS All home medications reconciled, new medications include 1. Percocet 2. Ativan 3. Lidocaine patches DISPOSITION Home with home health, PT, home nurse, OT FOLLOW UP Follow up with Dr. Rangel in the office in 10-14 days for a general post- operative visit
[2016-09-28 13:37] VITALS: PULSE 86
[2016-09-28 14:50] VITALS: O2SAT 90
== END 2016-09-28 14:00 | disposition home health service (06) | DRG 165 ==
LOC: F3E 11:31 → F2N 19:53 → F1N 09-23 12:57
PROVIDERS: ADMIT Surgery; ATTEND Surgery
PROC: 0BTF0ZZ Resection of Right Lower Lung Lobe, Open Approach (ICD-10-PCS; principal; 2016-09-21 13:00)
PROC: 0BTD0ZZ Resection of Right Middle Lung Lobe, Open Approach (ICD-10-PCS; principal; 2016-09-21 13:00)
PROC: 30233N1 Transfusion of Nonautologous Red Blood Cells into Peripheral Vein, Percutaneous Approach (ICD-10-PCS; principal; 2016-09-21 13:00)
DX: D3A.090 Benign carcinoid tumor of the bronchus and lung (principal); R06.89 Other abnormalities of breathing; Z53.32 Thoracoscopic surgical procedure converted to open procedure
CPT/HCPCS: 97116-GP; 97161-GP; 97166-GO; 97530-GO; 97535-GO; J0690; J1100; J2250; J2370; J2405; J2704; J2710; J3010; P9016; P9047

== ENCOUNTER → 2016-10-04 | Outpatient (CLI) | payer OTHER | LOC: FIMAGING 15:22 | PROVIDERS: ATTEND Internal Medicine | DX: J90 Pleural effusion, not elsewhere classified (principal); M89.8X8 Other specified disorders of bone, other site; Z98.890 Other specified postprocedural states ==

== ENCOUNTER → 2016-10-14 | Outpatient (CLI) | payer OTHER | LOC: FIMAGING 16:23 | PROVIDERS: ATTEND Surgery | DX: Z08 Encounter for follow-up examination after completed treatment for malignant neoplasm (principal); J90 Pleural effusion, not elsewhere classified; Z85.118 Personal history of other malignant neoplasm of bronchus and lung ==

== ENCOUNTER → 2016-11-15 | Outpatient (CLI) | payer OTHER ==
[~2016-11-15] MED LIST changes: -IOPAMIDOL (ISOVUE-300) 100 ML BTL ONE; +LIDOCAINE 1% 300 MG/30 ML SDV ONE
== END ==
LOC: FIMAGING 11:52
PROVIDERS: ATTEND Internal Medicine
PROC: 0G9H3ZX Drainage of Right Thyroid Gland Lobe, Percutaneous Approach, Diagnostic (ICD-10-PCS; principal; 2016-11-15)
DX: E04.1 Nontoxic single thyroid nodule (principal)

== ENCOUNTER 2016-12-01 09:30 | Day surgery (SDC) | payer OTHER ==
[2016-12-01] MEDS ORDERED: LR 1,000 ML IV ONE (10:23)
--- NOTE | 2016-12-01 11:00 | PDANEPAE ---
ANE Past Medical History - Cardiovascular History Hx Hypertension: No Hx Arrhythmias: No Hx Chest Pain: No Hx Coronary Artery / Peripheral Vascular Disease: No Hx CHF / Valvular Disease: No Hx Palpitations: No Cardiovascular History Comment: BP RUNS LOW - Pulmonary History Hx COPD: No Hx Asthma/Reactive Airway Disease: No Hx Recent Upper Respiratory Infection: No Hx Oxygen in Use at Home: Yes O2 in Use at Home (L/minute): 3 Hx Sleep Apnea: No Sleep Apnea Screening Result - Last Documented: Negative Pulmonary History Comment: PRONE TO URI'S WHICH BECOME PNEUMONIA. 09/2016 REMVL RT MID/LOWER LOBE HAS USED OXYGEN AT HS AND DURING TAKING SHOWER SINCE - Neurologic History Hx Cerebrovascular Accident: No Hx Seizures: Yes Hx Dementia: No Neurologic History Comment: EPILEPSY - SEIZURES NOT SINCE - Endocrine History Hx Diabetes: No - Renal History Hx Renal Disorders: Yes Renal History Comment: SMALL BLADDER FREQUENT URINATION - Liver History Hx Hepatic Disorders: No - Neurological & Psychiatric Hx Hx Neurological and Psychiatric Disorders: No - Cancer History Hx Cancer: Yes Cancer History Comment: RLL LUNG - Congenital Disorder History Hx Congenital Disorders: No - GI History Hx Gastrointestinal Disorders: No - Other Health History Other Health History: ECZEMA OCCAS. OSTEOPENIA - Chronic Pain History Chronic Pain: No - Surgical History Prior Surgeries: RT MID/LOWER LOBECTOMY FOR CARCINOID TUMOR 09/21/2016. TONSILLECTOMY. NODULES PAOLO KNEES REMOVED. OVARIAN CYST. WISDOM TEETH ANE Review of Systems Review of systems is: negative Review of Systems: - Exercise capacity METS (RN): 4 METS ANE Patient History - Allergies Allergies/Adverse Reactions: No Known Allergies Allergy (Unverified 09/21/11 11:44) - Home Medications Home medications: home medication list seen and reviewed Home Medications: Herbals/Supplements -Info Only 1 ea PO DAILY 09/17/16 [Last Taken 09/17/16] PHENOBARBITAL 97.2 mg PO DAILY 09/17/16 [Last Taken 09/21/16] Phenobarbital 32.4 mg PO DAILY PRN 09/17/16 [Last Taken 09/21/16] - NPO status NPO Status: no food or drink >8 hours NPO Since - Liquids (Date): 12/01/16 NPO Since - Liquids (Time): 08:00 NPO Since - Solids (Date): 11/30/16 NPO Since - Solids (Time): 23:15 - Anes Hx Anes Hx: no prior problems - Smoking Hx Smoking Status: Never smoked - Alcohol Use Alcohol Use: Rarely - Family Anes Hx Family Anes Hx: none Family Hx Anesthesia Complications: NEG ANE Labs/Vital Signs - Vital Signs Blood Pressure: 116/72 Heart Rate: 71 Respiratory Rate: 18 O2 Sat (%): 100 Height: 156.85 cm Weight: 65.771 kg ANE Physical Exam - Airway Neck exam: FROM Mallampati Score: Class 2 Mouth exam: normal dental/mouth exam - Pulmonary Pulmonary: no respiratory distress, no rales or rhonchi - Cardiovascular Cardiovascular: regular rate and rhythym - ASA Status ASA Status: III ANE Anesthesia Plan Anesthesia Plan: MAC
[2016-12-01] MEDS ORDERED: INDOMETHACIN 50 MG SUPP PR PRN (11:08)
[2016-12-01] MEDS ORDERED: MIDAZOLAM 2 MG/2 ML VIAL IVP ONE (11:08)
--- NOTE | 2016-12-01 11:08 | PDGENHP ---
History & Physical Chief Complaint: carcinoid History of Present Illness: 56 year old female who presents for evaluation of abnormal imaging. Mary Jo has a history of pulmonary carcinoid and had recent PET with uptake in the distal stomach. EGD performed with subepithelial lesion in body. She presents for further evaluation. Pertinent Past, Social, Family History: PMHx: Seizure disorder, osteopenia. SoHx: no tobacco Relevant Physical Exam: HEENT: anicteric\. CV: RRR +s1s2. lungs: Ctab. Abd: soft, nt, + bs Cardiorespiratory Assessment: ASA 3
[2016-12-01] MEDS ORDERED: MIDAZOLAM 2 MG/2 ML VIAL ONE (11:10)
[2016-12-01] MEDS ORDERED: NS 500 ML IV SCH (11:15)
[2016-12-01] MEDS ORDERED: PROPOFOL 200 MG/20 ML VIAL ONE ×2 (11:16)
[2016-12-01] MEDS ORDERED: fentaNYL 100 MCG/2 ML INJ ONE (11:17)
[2016-12-01] MEDS ORDERED: PROMETHAZINE HCL 25 MG/ML INJ IVP PRN (12:12)
[2016-12-01] MEDS ORDERED: ONDANSETRON 4 MG/2 ML VIAL IVP PRN (12:12)
[2016-12-01] MEDS ORDERED: fentaNYL 100 MCG/2 ML INJ IVP PRN (12:12)
[2016-12-01] MEDS ORDERED: NALOXONE HCL 0.4 MG/ML INJ IVP PRN (12:12)
--- NOTE | 2016-12-01 12:13 | POSTANESTH ---
Post Anesthetic Evaluation Cardiovascular Status: Normal, Stable Respiratory Status: Normal, Stable Level of Consciousness/Mental Status: Can Participate in Eval, Alert and Oriented Pain Control: Adequate, Prn Tx Ordered Nausea/Vomiting Control: Adequate, Prn Tx Ordered Complications Possibly Related to Anesthesia: None Noted
[2016-12-01 13:09] VITALS: PULSE 67; RESP 16; TEMP 98.1
[2016-12-01 13:30] VITALS: BP 101/72; O2SAT 97
--- NOTE | 2016-12-10 08:40 | GIREPORT ---
[facility] Surgical Services - Endoscopy Department Patient Name: Mary Jo Marx Procedure Date: 12/01/2016 11:16 AM Patient Type: Outpatient Attending MD/ ER Physician: Nilay Aaron MD Procedure: Upper EUS Indications: Abnormal abdominal PET scan, Submucosal tumor versus extrinsic mass fou nd on endoscopy Patient Profile: 56 year old female with a history of pulmonary carcinoid s/p resection who presents for evaluation of abnormal imaging/subepithelilium lesion. She had a recent PET scan with uptake in body and antrum of the stomach. She underwent an EGD on 11/22/16 by my partner, Dr. Ho, with a 10mm submu cosal lesion seen in the distal gastric body. Providers: Nilay Aaron MD Medicines: Monitored Anesthesia Care Complications: No immediate complications. Estimated blood loss: Minimal. Description of Procedure: After obtaining informed consent, the endoscope was passed under direct vision. Throughout the procedure, the patient's blood pressure, pulse, and oxygen saturations were monitored continuously. The Endosonoscope was introduced through the mouth, and advanced to the second part of duoden um. The esopahgus, stomach, and duodenum were visualized endosonographicall y. The Endoscope was introduced through the mouth, and advanced to the sec ond part of duodenum. Findings: Endoscopic Finding : The examined esophagus was normal. Multiple small sessile polyps were found on the greater curvature of th e stomach. Biopsies were taken with a cold forceps for histology. Patchy mildly erythematous mucosa was found in the gastric antrum. Biop sies were taken with a cold forceps for histology. A single 10 mm submucosal papule (nodule) was found in the gastric body . Area was tattooed with an injection of 3 mL of Sridevi ink. After EUS examination, the lesion was ijected with 3cc of saline for a lift. The lesion was snared with hot cautery and removed in one peice. Two Resolu tion cips were placed to close the defect. The examined duodenum was normal. Endosonographic Finding : Pancreatic parenchymal abnormalities were noted in the entire pancreas. These consisted of hyperechoic foci. There was no sign of significant endosonographic abnormality in the com mon bile duct. The submucosal lesion examined endosonographically in the body of the stomach. This appeared to primarily be due to thickening within the lum inal interface/superficial mucosa (Layer 1). It measued about 1cm x 7mm. It was removed after EUS examination (see above for description of removal) There was no sign of significant endosonographic abnormality in the com mon bile duct. No stones were identified. The gallbladder was normal in appearance. There was no sign of significant endosonographic abnormality in the visualized portion of the liver. Estimated Blood Loss: Estimated blood loss was minimal. Post Op Diagnosis: - Normal esophagus. - Multiple gastric polyps. Biopsied. - Erythematous mucosa in the antrum. Biopsied. - A single submucosal papule (nodule) found in the stomach. Tattooed. - Normal examined duodenum. - Pancreatic parenchymal abnormalities consisting of hyperechoic foci w ere noted in the entire pancreas. - There was no sign of significant pathology in the common bile duct. - The subepithelial lesion was superficial and EMR was performed. - There was no sign of significant pathology in the common bile duct. - There was no evidence of significant pathology in the visualized port ion of the liver. Recommendation: - Discharge patient to home (with escort). - Continue present medications. - Advance diet as tolerated. - No aspirin, ibuprofen, naproxen, or other non-steroidal anti-inflamma tory drugs for 1 week. - Await path results. - Repeat EGD in 6 months dependent on pathology - Thank you for allowing me to particpate in the care of your patient. Nilay Aaron MD Nilay Aaron MD 12/10/2016 8:40:16 AM This report has been signed electronicallyNilay Aaron MD Number of Addenda: 0 Note Initiated On: 12/01/2016 11:16 AM [email or web address]
== END 2016-12-01 13:47 | disposition home or self-care (01) ==
LOC: FSGY 09:30
PROVIDERS: ATTEND Internal Medicine Gastroenterology
PROC: 0DB68ZX Excision of Stomach, Via Natural or Artificial Opening Endoscopic, Diagnostic (ICD-10-PCS; principal; 2016-12-01 11:00)
DX: K31.7 Polyp of stomach and duodenum (principal); K29.70 Gastritis, unspecified, without bleeding; R93.3 Abnormal findings on diagnostic imaging of other parts of digestive tract; Z85.110 Personal history of malignant carcinoid tumor of bronchus and lung; Z86.010 Personal history of colon polyps; Z80.3 Family history of malignant neoplasm of breast
CPT/HCPCS: J2250; J2704; J3010

== ENCOUNTER → 2017-01-10 | Outpatient (CLI) | payer OTHER | LOC: FIMAGING 12:11 | PROVIDERS: ATTEND Internal Medicine | DX: Z12.31 Encounter for screening mammogram for malignant neoplasm of breast (principal); Z80.3 Family history of malignant neoplasm of breast | CPT/HCPCS: G0202 ==

== ENCOUNTER → 2017-01-17 | Outpatient (CLI) | payer OTHER | LOC: FIMAGING 12:19 | PROVIDERS: ATTEND Internal Medicine | DX: R92.0 Mammographic microcalcification found on diagnostic imaging of breast (principal) | CPT/HCPCS: G0206 ==

== ENCOUNTER → 2018-02-06 | Outpatient (CLI) | payer OTHER | LOC: FIMAGING 15:43 | PROVIDERS: ATTEND Internal Medicine | DX: R05 Cough (principal); Z85.118 Personal history of other malignant neoplasm of bronchus and lung ==

== ENCOUNTER → 2018-03-20 | Outpatient (CLI) | payer OTHER | LOC: FIMAGING 11:24 | PROVIDERS: ATTEND Internal Medicine | DX: R92.8 Other abnormal and inconclusive findings on diagnostic imaging of breast (principal) ==